=== PATIENT | male | born 1970 | race Asian ===

== ENCOUNTER 2018-08-28 01:19 | Outpatient (CLI) | payer BC ==
[2018-08-28 10:32] LABS: #Basophils 0.1 thou/uL (0.0-0.2); #Eosinphils 0.1 thou/uL (0.0-0.7); #Lymphocytes 1.6 thou/uL (1.20-3.40); #Monocytes 0.3 thou/uL (0.11-0.59); #Neutrophils 1.8 thou/uL (1.40-6.50); %Basophils 1.7 % (0.0-1.0); %Eosinophils 2.6 % (0.0-10.0); %Lymphocytes 41.6 % (21.0-51.0); %Monocytes 7.3 % (0.0-10.0); %Neutrophils 46.9 % (42.0-75.0); Hemoglobin 14.4 g/dL (14.0-18.0); Mean Corpuscular HGB CONC 32.9 g/dL (32.0-36.0); Mean Corpuscular Hemoglobin 30.5 pg (27.0-31.0); Mean Corpuscular Volume 92.6 fL (78.0-98.0); Mean Platelet Volume 7.4 fL (7.4-10.4); Platelet Count 218 thou/uL (130-400); Red Blood Cell (RBC) Count 4.73 mill/uL (4.70-6.10); White Blood Cell (WBC) Count 3.8 thou/uL (4.8-10.8)
[2018-08-28 10:51] LABS: Anion Gap 11 mmol/L (10-20); BUN (Urea Nitrogen) 11 mg/dL (8.9-20.6); Calc. Creatinine Clearance 0 mL/min (70-130); Calcium 9.6 mg/dL (7.8-10.44); Carbon Dioxide 24 mmol/L (22-29); Chloride 106 mmol/L (98-107); Estimated GFR-MDRD Greater than 90; Glucose 139 mg/dL (70-105); Potassium 4.1 mmol/L (3.5-5.1); Sodium 137 mmol/L (136-145)
--- NOTE | 2018-08-28 18:44 | EKG ---
Test Reason : Blood Pressure : / mmHG Vent. Rate : 066 BPM Atrial Rate : 066 BPM P-R Int : 176 ms QRS Dur : 080 ms QT Int : 366 ms P-R-T Axes : 056 058 023 degrees QTc Int : 383 ms Normal sinus rhythm Normal ECG No previous ECGs available Confirmed by DR. Bradley TARANGO ([id number]) on 08/28/2018 6:44:10 PM Referred By: NIRAJ Confirmed By:DR. Bradley TARANGO
== END 2018-08-28 01:20 | disposition home or self-care (01) ==
LOC: LABBT 01:19
PROVIDERS: ATTEND Specialist
DX: Z01.818 Encounter for other preprocedural examination (principal); D17.1 Benign lipomatous neoplasm of skin and subcutaneous tissue of trunk
CPT/HCPCS: 80048; 85025; 93005; 93010

== ENCOUNTER 2018-09-09 05:58 | Day surgery (SDC) | payer BC ==
--- NOTE | 2018-08-27 11:02 | HP ---
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 He has had this for over a year. He desires removal as it is unsightly and it has grown rapidly. PRIMARY CARE PHYSICIAN: Dr. Dill. ALLERGIES: NONE. SOCIAL HISTORY: Tobacco, none. Alcohol, none. PAST SURGICAL HISTORY: Left inguinal hernia repair. PAST MEDICAL HISTORY: Hypertension, borderline, not treated with medication. REVIEW OF SYSTEMS: Ten-point noncontributory. PHYSICAL EXAMINATION: VITAL SIGNS: Blood pressure 162/96, pulse 75, temperature 98.1 degrees, weight 158 pounds, height 5 feet 6 inches. HEAD, EARS, EYES, NOSE, AND THROAT: Unremarkable. LUNGS: Clear to auscultation. CARDIAC: Regular rate and rhythm without murmur or gallop. ABDOMEN: Soft and nontender. No mass. EXTREMITIES: Unremarkable. No ankle edema. NEUROLOGIC: Neurologically intact. No lymphadenopathy at upper midline back and base of neck, it is 11 cm mobile soft tissue mass. It is consistent with a lipoma. ASSESSMENT AND PLAN: 11-cm large lipoma in upper midline back and base of neck. We would recommend excision under anesthesia. Risks of infection, bleeding, and reoperation were discussed. Necessity leaving the drain discussed. He understands risks and benefits and we planned this under general anesthesia. We will plan this as an outpatient. Follow up in office in 1 week postoperatively. Job ID: [id number]
[2018-08-28 09:37] VITALS: BMI 23.4
[2018-09-09] MEDS ORDERED: Fentanyl 100 MCG/2 ML VIAL ONE (06:26)
[2018-09-09] MEDS ORDERED: Ketorolac Tromethamine 30 MG/ML VIAL ONE (06:45)
[2018-09-09] MEDS ORDERED: Lidocaine 2% PF 5 ML VIAL ONE (06:47)
[2018-09-09] MEDS ORDERED: Bupivacaine HCl 0.5%/Epinephrine 1:200,000/PF 30 ml Vial ONE (06:47)
[2018-09-09] MEDS ORDERED: Bacitracin Zinc Ointment 30 gm TUBE ONE (06:47)
[2018-09-09] MEDS ORDERED: Lidocaine 1% (PF) 30 ML VIAL ONE (06:47)
[2018-09-09] MEDS ORDERED: Bupivacaine/Epinephrine 0.25% 30 ML VIAL ONE (07:39)
--- NOTE | 2018-09-09 10:57 | OP ---
DATE OF PROCEDURE: 09/09/2018 PREOPERATIVE DIAGNOSIS: Large lipoma upper back, 11 cm diameter. POSTOPERATIVE DIAGNOSIS: Large lipoma upper back, 11 cm diameter. PROCEDURE PERFORMED: Excision of large lipoma back 7 cm incision, #10 flat NICHOLAS drain. ANESTHESIA: General, local 0.25% Marcaine with epinephrine 60 mL with 2% Xylocaine 10 mL, total volume used. DESCRIPTION OF PROCEDURE: The patient was taken to the operating room, where under general anesthesia in the right lateral decubitus position on a wang bag. He was properly positioned, and upper back and lower neck were prepared with ChloraPrep and draped in routine fashion. Transverse skin incision was made carried down through skin and subcutaneous tissue, and a large lipoma was excised from the underlying tissues. It was excised, submitted to Pathology. Hemostasis was gained with cautery. #10 NICHOLAS drain was placed and secured with 3-0 nylon suture, tailored to length. Subcutaneous tissue was approximated with 3-0 Monocryl, skin with subdermal 4-0 Monocryl and Colwell glue applied. Sterile dressings were applied. Incision, 7 cm layer closure. Job ID: [id number]
[2018-09-09] MEDS ORDERED: PHENYLEPHRINE-NS 100 MCG/ML 10 ML SYRINGE ONE (14:32)
[2018-09-09] MEDS ORDERED: Glycopyrrolate 0.2 MG/ML 5 ML SYRINGE ONE (14:32)
[2018-09-09] MEDS ORDERED: Rocuronium Bromide 10 MG/ML (10ML VIAL) ONE (14:32)
[2018-09-09] MEDS ORDERED: Dexamethasone 20 MG/5 ML VIAL ONE (14:32)
[2018-09-09] MEDS ORDERED: PROPOFOL 200 MG/20 ML VIAL ONE (14:32)
[2018-09-09] MEDS ORDERED: Ondansetron PF 4 MG/2 ML Vial ONE (14:32)
[2018-09-09] MEDS ORDERED: Lidocaine 1% PF 5 ML VIAL ONE (14:32)
== END 2018-09-09 10:59 | disposition home or self-care (01) ==
LOC: SDC 05:58
PROVIDERS: ATTEND Specialist
PROC: 0JB70ZZ Excision of Back Subcutaneous Tissue and Fascia, Open Approach (ICD-10-PCS; principal; 2018-09-09)
DX: D17.1 Benign lipomatous neoplasm of skin and subcutaneous tissue of trunk (principal); R03.0 Elevated blood-pressure reading, without diagnosis of hypertension; Z79.899 Other long term (current) drug therapy
CPT/HCPCS: 88304; J0131; J0670; J1100; J1885; J2001; J2405; J2704; J3010